=== PATIENT | male | born 1960 | race Caucasian/White ===

== ENCOUNTER 2017-12-23 11:55 | Day surgery (SDC) | payer OTHER ==
[~2017-12-23] VITALS: Ht 172.7 cm; Wt 95.7 kg
[~2017-12-23 11:55] MED LIST: ASCO500 PO; CETI10 PO; IBUP100S PO
[2017-12-23] MEDS ORDERED: Vitamin C100 M1 (12:12)
[2017-12-23] MEDS ORDERED: MULTI VITAMIN1 EACH (12:14)
[2017-12-23] MEDS ORDERED: ALBU90OI61 (12:14)
== END 2017-12-23 13:53 | disposition home or self-care (01) ==
LOC: ORSCSDS 11:55
PROVIDERS: Internal Medicine Gastroenterology
PROC: 0DBK8ZX Excision of Ascending Colon, Via Natural or Artificial Opening Endoscopic, Diagnostic (ICD-10-PCS; principal; 2017-12-23 13:00)
PROC: 0DBH8ZX Excision of Cecum, Via Natural or Artificial Opening Endoscopic, Diagnostic (ICD-10-PCS; principal; 2017-12-23 13:00)
DX: Z12.11 Encounter for screening for malignant neoplasm of colon (principal); D12.0 Benign neoplasm of cecum; D12.2 Benign neoplasm of ascending colon; K57.30 Diverticulosis of large intestine without perforation or abscess without bleeding; G47.33 Obstructive sleep apnea (adult) (pediatric); J44.9 Chronic obstructive pulmonary disease, unspecified; Z86.010 Personal history of colon polyps; F17.220 Nicotine dependence, chewing tobacco, uncomplicated
CPT/HCPCS: 88305; J7120

== ENCOUNTER 2023-12-11 09:04 | Day surgery (SDC) | payer OTHER ==
[~2023-12-11] VITALS: Ht 172.7 cm; Wt 100.0 kg
[2023-12-11] VITALS (9 sets, daily range): BP systolic 101–124; BP diastolic 59–82
[~2023-12-11 09:04] MED LIST changes: +ALBU90OI INH; +Aspir 8181 MG PO; +DOCU100 PO; +MULVITA PO; +Robaxin750 MG PO; +SYMBICORT 80-10.2 GM INH; +TRAM50 PO; +Vitamin C100 M1
[2023-12-11] MEDS ORDERED: NS 250 ML IV ONE (09:22)
[2023-12-11] MEDS ORDERED: Verapamil HCL 2.5 MG/ML 2ML Injection ONE (09:22)
[2023-12-11] MEDS ORDERED: NS 1,000 ML IV ONE ×2 (09:23→09:53)
[2023-12-11] MEDS ORDERED: Nitroglycerin 2 MG/20 ML BTL ONE (09:23)
[2023-12-11] MEDS ORDERED: Heparin Sodium 1000 Units/ML 10ML MDV ONE (09:23)
[2023-12-11] MEDS ORDERED: IBUP800 PO (09:31)
[2023-12-11] MEDS ORDERED: B-COMPLEX1 EACH PO (09:32)
[2023-12-11] MEDS ORDERED: Roxicodone5 MG PO (09:33)
[2023-12-11] MEDS ORDERED: Midazolam HCl 1MG / ML 2ML Vial ONE (09:53)
[2023-12-11] MEDS ORDERED: FentaNYL Citrate 50 MCG/ML 2 ML Injection ONE (09:53)
--- NOTE | 2023-12-11 11:10 | NUR ---
ASSUMED CARE OF PT POST PROCEDURE. PT AWAKE AND CONVERSING APPROPRIATELY; DENIES CHEST PAIN POST PROCEDURE. MONITOR SB 50'S, B/P 116/77, SPO2 97 % RA, AFEBRILE. R RADIAL SITE WITH SMALL HEMATOMA UPON ARRIVAL, MANUAL PRESSURE HELD X 5 MIN, HEMATOMA RESOLVED, SITE SOFT WITHOUT SWELLING; TR BAND IN PLACE, RUE POSITIVE PLEUTH POST TR BAND PLACEMENT.
--- NOTE | 2023-12-11 11:58 | NUR ---
REPORT TO MIRELA MILLER; ALL QUESTIONS ANSWERED.
--- NOTE | 2023-12-11 12:18 | NUR ---
RIGHT RADIAL ARTERY SITE SOFT AND NONTENDER, NO HEMATOMA, NO BLEEDING, tr BAND IN PLACE, WRIST BOARD IN PLACE.
--- NOTE | 2023-12-11 12:45 | NUR ---
2 CC AIR REMOVED FROM tr BAND SITE REMAINS STABLE.
--- NOTE | 2023-12-11 13:18 | NUR ---
air has been completely removed from TR band site stable. wrist borad in place.
--- NOTE | 2023-12-11 14:15 | NUR ---
patient up at bedside. assisting patient with getting dressed.
--- NOTE | 2023-12-11 14:35 | NUR ---
TR band removed and cloth dot dressing placed. wrist board in place. site soft and nontender, no hematoma, no bleeding. patient and verbalized understanding of discahrge instructions and precautions.patient transferred to car via wheelchair. driving
== END 2023-12-11 14:35 | disposition home or self-care (01) ==
LOC: MHTC 09:04
DX: I25.118 Atherosclerotic heart disease of native coronary artery with other forms of angina pectoris (principal); E78.5 Hyperlipidemia, unspecified; J44.9 Chronic obstructive pulmonary disease, unspecified; G47.33 Obstructive sleep apnea (adult) (pediatric); Z99.89 Dependence on other enabling machines and devices
CPT/HCPCS: 76937; 93458; 99152; 99153; C1769; C1887; C1894; J1644; J2250; J3010; J7030; J7050; Q9967